=== PATIENT | female | born 1950 | race Caucasian/White ===

== ENCOUNTER 2024-04-19 09:52 | Outpatient (CLI) | payer OTHER, MEDICARE | END 2024-04-19 18:31 | disposition home or self-care (01) | LOC: SCT 09:52 | PROVIDERS: ATTEND Student in an Organized Health Care Education/Training Program | DX: M16.11 Unilateral primary osteoarthritis, right hip (principal) ==

== ENCOUNTER 2024-05-15 05:30 | Day surgery (SDC) | payer OTHER, MEDICARE ==
[2024-05-07 12:55] LABS: BASOPHILS # (AUTO) 0.1 K/uL (0.0-0.2); BASOPHILS % (AUTO) 0.9 % (0.0-2.0); EOSINOPHILS # (AUTO) 0.2 K/uL (0.0-0.4); EOSINOPHILS % (AUTO) 2.3 % (0.0-4.0); HEMOGLOBIN 12.9 g/dL (12.0-16.0); LYMPHOCYTES # (AUTO) 2.1 K/uL (1.0-5.5); LYMPHOCYTES % (AUTO) 21.7 % (20.5-51.5); MEAN CORPUSCULAR HEMOGLOBIN 30 pg (27-31); MEAN CORPUSCULAR HGB CONC 33 % (32-36); MEAN CORPUSCULAR VOLUME 91 fL (79.0-98.0); MONOCYTES # (AUTO) 0.6 K/uL (0.0-1.0); MONOCYTES % (AUTO) 5.8 % (1.7-9.3); NEUTROPHILS # (AUTO) 6.6 K/uL (1.8-7.7); NEUTROPHILS % (AUTO) 69.3 % (40.0-70.0); PLATELET COUNT (AUTO) 269 K/uL (130-430); RED BLOOD CELL COUNT(AUTO) 4.31 MIL/uL (4.2-6.2); RED CELL DISTRIBUTION WIDTH 14.2 % (9.0-15.0); WHITE BLOOD COUNT (AUTO) 9.5 K/uL (4.8-10.8)
[2024-05-07 13:14] LABS: INR 0.9 (0.8-1.2)
[2024-05-07 13:15] LABS: ALANINE AMINOTRANSFERASE 21 U/L (12-78); ALBUMIN 3.8 g/dL (3.4-4.8); ANION GAP 6 (5-15); ASPARTATE AMINOTRANSFERASE 22 U/L (10-37); CALCIUM 9.7 mg/dL (8.4-11.0); CARBON DIOXIDE 31 mmol/L (23-29); CHLORIDE 103 mmol/L (98-107); CREATININE 0.81 mg/dL (0.55-1.30); GLUCOSE 99 mg/dL (74-106); POTASSIUM 4.4 mmol/L (3.5-5.1); SODIUM SERUM 140 mmol/L (136-145); TOTAL BILIRUBIN 0.5 mg/dL (0.0-1.0); TOTAL PROTEIN, SERUM 7.2 g/dL (6.4-8.3); UREA NITROGEN, BLOOD 15 mg/dL (8-21)
[~2024-05-15] VITALS: Ht 162.6 cm; Wt 80.9 kg
[2024-05-15] MEDS ORDERED: SCOPOLAMINE HYDROBROMIDE 1 MG PATCH .72 H (TRANSDERM-SCOP) TD ONE (07:08)
[2024-05-15] MEDS ORDERED: CELECOXIB 100 MG CAPSULE ONE (07:08)
[2024-05-15] MEDS ORDERED: ACETAMINOPHEN 500 MG TABLET ONE (07:08)
[2024-05-15] MEDS ORDERED: GABAPENTIN 300 MG CAPSULE ONE (07:09)
[2024-05-15] MEDS: SCOPOLAMINE HYDROBROMIDE 1 MG PATCH .72 H (TRANSDERM-SCOP) TD ONE (07:10)
[2024-05-15] MEDS ORDERED: MIDAZOLAM HCL 2 MG/2 ML VIAL (VERSED) ONE (07:10)
[2024-05-15] MEDS: CELECOXIB 100 MG CAPSULE PO ONE (07:10)
[2024-05-15] MEDS: ACETAMINOPHEN 500 MG TABLET PO ONE (07:10)
[2024-05-15] MEDS ORDERED: VANCOMYCIN HCL 1000 MG/VIAL IV ONE (07:10)
[2024-05-15] MEDS ORDERED: WATER FOR IRRIGATION,STERILE 1,000 ML IRRIG.SOLN IR ONE (07:10)
[2024-05-15] MEDS ORDERED: DEXAMETHASONE SOD PHOSPHATE 4 MG/ML VIAL ONE (07:10)
[2024-05-15] MEDS ORDERED: PROPOFOL 200MG/ 20ML VIAL (DIPRIVAN) IV ONE (07:10)
[2024-05-15] MEDS ORDERED: DESFLURANE 15 MIN GAS INH ONE (07:10)
[2024-05-15] MEDS ORDERED: LIDOCAINE MPF 2% 20 MG/1 ML, 5 ML VIAL INH ONE (07:10)
[2024-05-15] MEDS ORDERED: ONDANSETRON HCL 4 MG/2 ML VIAL ONE (07:10)
[2024-05-15] MEDS ORDERED: NS IRRIG SOLN 1000 ML IR ONE (07:10)
[2024-05-15] MEDS ORDERED: NS IRRIG SOLN 5000 ML IR ONE (07:10)
[2024-05-15] MEDS: GABAPENTIN 300 MG CAPSULE PO ONE (07:10)
[2024-05-15] MEDS ORDERED: LR 1,000 ML IV.SOLN IV ONE (07:10)
[2024-05-15] MEDS ORDERED: TRANEXAMIC ACID 1,000 MG/10 ML VIAL ONE (07:10)
[2024-05-15] MEDS ORDERED: ROCURONIUM BROMIDE 10 MG/ML (ZEMURON) ONE (07:10)
[2024-05-15] MEDS ORDERED: BUPIVACAINE /PF 0.25% 30 ML VIAL INJ ONE (07:10)
[2024-05-15] MEDS ORDERED: SUGAMMADEX SODIUM 200 MG/2 ML VIAL IV ONE (07:10)
[2024-05-15] MEDS ORDERED: CEFAZOLIN SOD 2 GM in D5W 50 ML IV ONE (07:15)
[2024-05-15] MEDS ORDERED: LR 1,000 ML IV SCH (08:00)
[2024-05-15] MEDS ORDERED: MEPERIDINE HCL/PF 25 MG/ML DISP.SYRIN IVP PRN (08:00)
[2024-05-15] MEDS ORDERED: LABETALOL 100 MG/ 20ML VIAL IVP PRN (08:00)
[2024-05-15] MEDS ORDERED: HYDROmorphone 1 MG/ML INJ. CARTRIDGE IVP PRN (08:00)
[2024-05-15] MEDS ORDERED: METOCLOPRAMIDE HCL 10 MG/2 ML VIAL IVP PRN (08:00)
[2024-05-15] MEDS ORDERED: hydrALAZINE HCL 20 MG/ML VIAL IVP PRN (08:00)
[2024-05-15 10:17] VITALS: PULSE 75; RESP 18; TEMP 98.4; O2SAT 99
[2024-05-15 10:40] VITALS: BP_SYST 114
[2024-05-15] MEDS: TAMSULOSIN HCL 0.4 MG CAP PO ONE (11:45)
[2024-05-15] MEDS ORDERED: HYDROmorphone 1 MG/ML INJ. CARTRIDGE ONE (13:20)
[2024-05-15] MEDS: HYDROmorphone 1 MG/ML INJ. CARTRIDGE IVP PRN (13:20)
== END 2024-05-15 14:53 | disposition home or self-care (01) ==
LOC: SMU 05:30 → SDS 05:30
PROVIDERS: ATTEND Student in an Organized Health Care Education/Training Program
DX: M16.11 Unilateral primary osteoarthritis, right hip (principal); M25.751 Osteophyte, right hip; I10 Essential (primary) hypertension; E78.5 Hyperlipidemia, unspecified; E66.9 Obesity, unspecified; G47.33 Obstructive sleep apnea (adult) (pediatric); E03.9 Hypothyroidism, unspecified; G62.9 Polyneuropathy, unspecified; G89.18 Other acute postprocedural pain; Z68.30 Body mass index [BMI] 30.0-30.9, adult; Z79.899 Other long term (current) drug therapy; Z90.49 Acquired absence of other specified parts of digestive tract; Z96.642 Presence of left artificial hip joint; Z98.890 Other specified postprocedural states
CPT/HCPCS: 20985; 80053; 85025; 85610; 85730; 87081; 36415; 71046; 27130; 64450; 72170; 76942; 97530; 97116; 97162; 88304; 88311; J3490 ×3; J0690; J0696; J1100; J3465; J2405; J2704; J3370; J1170; J7060 ×2; J7120; A4649; C1776 ×4; C1713 ×2; 76000